=== PATIENT | male | born 2000 | race Caucasian/White ===

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

== ENCOUNTER 2022-08-31 23:39 | Emergency (ER) | payer OTHER ==
[~2022-08-31] VITALS: Ht 172.7 cm; Wt 66.7 kg
[2022-09-01] MEDS ORDERED: LEVSIN/SL0.125 MG SL (08:12)
[2022-09-01] MEDS ORDERED: PEPCID40 MG PO (08:12)
[2022-09-01] MEDS ORDERED: INTESTINEX680 M1 PO (08:12)
== END 2022-09-01 08:41 ==
LOC: ER 23:39
DX: R30.0 Dysuria (principal); R19.7 Diarrhea, unspecified

== ENCOUNTER 2022-12-03 01:20 | Emergency (ER) | payer OTHER ==
[~2022-12-03] VITALS: Ht 172.7 cm; Wt 67.1 kg
[~2022-12-03 01:20] MED LIST changes: +INTESTINEX680 M1 PO; +LEVSIN/SL0.125 MG SL; +PEPCID40 MG PO
== END 2022-12-03 04:16 ==
LOC: ER 01:20
DX: T17.1XXA Foreign body in nostril, initial encounter (principal)

== ENCOUNTER 2023-02-08 19:49 | Emergency (ER) | payer OTHER ==
[~2023-02-08] VITALS: Ht 172.7 cm; Wt 68.9 kg
[2023-02-08 21:46] LABS: HEMOGLOBIN 15.3 g/dL (13-16.00); MEAN CELL VOLUME 84.7 fL (80.0-100.00); MEAN CORPUSCULAR HEMOGLOBIN 28.2 pg (27.00-32.0); MEAN CORPUSCULAR HGB CONC 33.3 g/dl (32.0-36.0); PLATELET COUNT 277 K/uL (150-450); RED BLOOD COUNT 5.44 M/uL (4.00-6.00); RED CELL DISTRIBUTION WIDTH 14.2 % (11.5-14.5)
[2023-02-08 22:01] LABS: CALCIUM 9.7 mg/dL (8.5-10.1); CREATININE SERUM 0.95 mg/dL (0.70-1.30); GFR 101.07; POTASSIUM 4.48 mEq/L (3.5-5.1)
[2023-02-09 00:38] LABS: URINE APPEARANCE Clear; URINE BILIRRUBIN Negative (NEGATIVE); URINE BLOOD Negative; URINE COLOR Yellow; URINE GLUCOSE Negative (NEGATIVE); URINE LEUKOCYTE Negative; URINE NITRATE Negative; URINE PROTEIN Negative (NEGATIVE)
[2023-02-09 00:39] LABS: URINE WBC 16.5 uL (0.0-23.2)
[2023-02-09 00:40] LABS: URINE BACTERIA 1.2 uL (0.0-1933); URINE EPITHELIAL CELLS 0.1 uL (0.0-38.8); URINE RBC 0.4 uL (0.0-20.8)
[2023-02-09] MEDS ORDERED: PYRIDIUM DS200 MG PO ×2 (01:31→01:32)
[2023-02-09] MEDS ORDERED: CIPRO500 MG PO ×2 (01:32→01:35)
== END 2023-02-09 01:40 ==
LOC: EMR PED 19:49 → ER 19:49 → EMR PED 21:15
PROVIDERS: Emergency Medicine
DX: R30.0 Dysuria (principal); I86.1 Scrotal varices

== ENCOUNTER 2023-03-31 15:57 | Emergency (ER) | payer OTHER ==
[~2023-03-31] VITALS: Ht 172.7 cm; Wt 67.6 kg
[~2023-03-31 15:57] MED LIST changes: +CIPRO500 MG PO; +PYRIDIUM DS200 MG PO
[2023-03-31 20:01] LABS: HEMATOCRIT 43.4 % (39.0-48.0); HEMOGLOBIN 14.7 g/dL (13-16.00); MEAN CELL VOLUME 83.1 fL (80.0-100.00); MEAN CORPUSCULAR HEMOGLOBIN 28.2 pg (27.00-32.0); PLATELET COUNT 234 K/uL (150-450); RED BLOOD COUNT 5.22 M/uL (4.00-6.00); RED CELL DISTRIBUTION WIDTH 13.4 % (11.5-14.5)
[2023-03-31 21:28] LABS: PH,URINE 7.5 (5.0-8.0); URINE APPEARANCE Clear; URINE BILIRRUBIN Negative (NEGATIVE); URINE BLOOD Negative; URINE COLOR Yellow; URINE GLUCOSE Negative (NEGATIVE); URINE LEUKOCYTE Negative; URINE NITRATE Negative; URINE PROTEIN Negative (NEGATIVE)
[2023-03-31 21:43] LABS: URINE BACTERIA 1.2 uL (0.0-1933); URINE RBC 0.5 uL (0.0-20.8); URINE WBC 0.8 uL (0.0-23.2)
== END 2023-03-31 23:15 | disposition home or self-care (01) ==
LOC: ER 15:58 → EMR PED 16:12
PROVIDERS: Emergency Medicine
DX: R51.9 Headache, unspecified (principal); Z20.822 Contact with and (suspected) exposure to COVID-19

== ENCOUNTER 2023-04-16 15:38 | Emergency (ER) | payer OTHER ==
[~2023-04-16] VITALS: Ht 172.7 cm; Wt 66.7 kg
== END 2023-04-16 18:58 | disposition home or self-care (01) ==
LOC: EMR PED 15:40 → ER 15:40 → EMR PED 16:31
DX: L02.31 Cutaneous abscess of buttock (principal)

== ENCOUNTER 2023-04-24 16:54 | Emergency (ER) | payer OTHER ==
[~2023-04-24] VITALS: Ht 172.7 cm; Wt 68.9 kg
== END 2023-04-24 18:47 | disposition home or self-care (01) ==
LOC: EMR PED 16:54
DX: L02.415 Cutaneous abscess of right lower limb (principal)

== ENCOUNTER 2024-05-04 09:12 | Emergency (ER) | payer OTHER ==
[~2024-05-04] VITALS: Ht 172.7 cm; Wt 65.3 kg
[2024-05-04 09:39] VITALS: BP 114/71; O2SAT 99
[2024-05-04] MEDS ORDERED: FAMOTIDINE/PF 20 MG in 0.9 % SODIUM CHLORIDE 8 ML IV PUSH STA (10:01)
[2024-05-04] MEDS ORDERED: KETOROLAC TROMETHAMINE 30 MG VIAL ONE (10:08)
[2024-05-04] MEDS ORDERED: ONDANSETRON HCL 2 MG/ML VIAL ONE (10:08)
[2024-05-04] MEDS ORDERED: FAMOTIDINE/PF 20 MG/2 ML VIAL ONE (10:09)
[2024-05-04] MEDS ORDERED: KETOROLAC TROMETHAMINE 30 MG VIAL IV ONE (10:15)
[2024-05-04] MEDS ORDERED: ONDANSETRON HCL 2 MG/ML VIAL IV ONE (10:15)
[2024-05-04] MEDS ORDERED: 0.9 % SODIUM CHLORIDE 1,000 ML IV SCH (10:15)
[2024-05-04 11:05] LABS: HEMATOCRIT 46.6 % (39.0-48.0); HEMOGLOBIN 16.2 g/dL (13-16.00); MEAN CELL VOLUME 84.4 fL (80.0-100.00); MEAN CORPUSCULAR HEMOGLOBIN 29.4 pg (27.00-32.0); MEAN CORPUSCULAR HGB CONC 34.8 g/dl (32.0-36.0); PLATELET COUNT 206 K/uL (150-450); RED BLOOD COUNT 5.53 M/uL (4.00-6.00); RED CELL DISTRIBUTION WIDTH 14.4 % (11.5-14.5)
[2024-05-04 11:51] LABS: ALBUMIN 4.6 gm/dL (3.4-5.0); BILIRUBIN TOTAL 1.26 mg/dL (0.3-1.2); CALCIUM 9.8 mg/dL (8.5-10.1); CREATININE SERUM 0.84 mg/dL (0.70-1.30); GFR 115.35; GLOBULINA 3.3 G/DL (2.4-3.5); POTASSIUM 4.19 mEq/L (3.5-5.1); TOTAL PROTEIN 7.9 gm/dL (6.4-8.2)
[2024-05-04] MEDS ORDERED: ZOFRAN8 MG PO (12:27)
[2024-05-04] MEDS ORDERED: PEPCID AC20 MG PO (12:27)
== END 2024-05-04 12:59 | disposition home or self-care (01) ==
LOC: ER 09:14
PROVIDERS: General Practice
DX: K52.89 Other specified noninfective gastroenteritis and colitis (principal); R11.2 Nausea with vomiting, unspecified; R10.9 Unspecified abdominal pain